=== PATIENT | male | born 2000 | race Caucasian/White ===

== ENCOUNTER 2018-06-14 16:11 | Emergency (ER) | payer BC ==
[2018-06-14 18:14] LABS: Hematocrit 44 % (42-52); Hemoglobin 15.3 g/dl (14.0-18.0); Mean Corpuscular HGB Conc 35 g/dl (31-36); Mean Corpuscular Hemoglobin 31 pg (27-31); Mean Corpuscular Volume 90 fL (80-94); Mean Platelet Volume 7.7 fL (7.4-10.4); Platelet Count 236 10^3/ul (150-450); Red Blood Count 4.91 10^6/ul (4.00-5.40); Red Cell Distribution Width 13 % (10.5-15); White Blood Count 5.2 10^3/ul (3.5-10.8)
[2018-06-14 18:25] LABS: EGFR Non-African American 78.7 (>60)
[2018-06-14 18:30] LABS: Urine Appearance Clear; Urine Blood 1+ (Negative); Urine Color Yellow; Urine Ketones Negative (Negative); Urine Protein Negative (Negative); Urine Red Blood Cell 1+(3-5/hpf) (Absent); Urine Specific Gravity 1.019 (1.010-1.030); Urine Urobilinogen Negative (Negative); Urine White Blood Cell Trace(0-5/hpf) (Absent)
--- NOTE | 2018-06-14 19:28 | ED ---
Neurological HPI - HPI Summary HPI Summary: Patient is a 18 y/o M w/ c/o blurry vision at left eye, then left hand numbness , then left arm numbness, then left facial numbness yesterday. These Sx occurred in short succession of one another and each episode lasted around 15 minutes. Patient reports he was watching TV when Sx onset. He denies headache, difficulty with speech, ambulation. Patient is on propranolol for anxiety, he states that he takes this medication monthly. He denies palpitations and recent stress. [facility] for further workup. No FMHx of CVA. Fever, chills, erythema at eyes, sore throat, chest pain, SOB, cough, abdominal pain, N/V, dysuria, hematuria, myalgia, edema, rash and dizziness are not reported. On triage, pain is rated 0/10, nothing is noted to aggravate/ alleviate Sx. Home medications and allergies are reviewed. - History of Current Complaint Chief Complaint: EDNeurologicalDeficit Stated Complaint: BLURRY VISION/NUMBNESS ON LT SIDE Time Seen by Provider: 06/14/18 16:54 Hx Obtained From: Patient Onset/Duration: Started days ago - onset yesterday, Resolved Timing: Intermittent Episodes Lasting: - around 15 minutes Current Severity: None Neurological Deficit Location: Facial - left sided, LUE Pain Intensity: 0 Pain Scale Used: 0-10 Numeric - 0/10 Character: Numbness/Tingling - LUE, left face, Visual Changes - left eye blurriness, Other: - no headache, changes in speech or ambulation Aggravating: Nothing Alleviating: Nothing Associated Signs and Symptoms: Positive: Visual Changes, Numbness - LUE and left face. Negative: Headache, Dizziness, Impaired Speech, Nausea/Vomiting, Fever, Chest Pain, Shortness of Breath, Palpitations - Allergy/Home Medications Allergies/Adverse Reactions: Allergies Allergy/AdvReac Type Severity Reaction Status Date / Time No Known Allergies Allergy Verified 06/14/18 16:17 PMH/Surg Hx/FS Hx/Imm Hx Sensory History: Denies: Hx Legally Blind, Hx Deafness Opthamlomology History: Denies: Hx Legally Blind EENT History: Denies: Hx Deafness Infectious Disease History: No Infectious Disease History: Denies: Traveled Outside the [place] in Last 30 Days - Family History Known Family History: Negative: Blood Disorder - Social History Alcohol Use: None Substance Use Type: Reports: None Smoking Status (MU): Former Smoker Review of Systems Negative: Fever, Chills Negative: Erythema Negative: Sore Throat Negative: Chest Pain Negative: Shortness Of Breath, Cough Negative: Abdominal Pain, Vomiting, Nausea Negative: dysuria, hematuria Negative: Myalgia, Edema Negative: Rash Neurological: Other - NEGATIVE - DIZZINESS, CHANGES IN AMBULATION; POSITIVE - BLURRY VISION AT LEFT EYE, LUE NUMBNESS AND LEFT FACIAL NUMBNESS Negative: Headache, Slurred Speech All Other Systems Reviewed And Are Negative: Yes Physical Exam - Summary Physical Exam Summary: Constitutional: Well-developed, Well-nourished, Alert. (-) Distressed Skin: Warm, Dry HENT: Normocephalic; Atraumatic Eyes: Conjunctiva normal Neck: Musculoskeletal ROM normal neck. (-) JVD, (-) Stridor, (-) Tracheal deviation Cardio: Rhythm regular, rate normal, Heart sounds normal; Intact distal pulses; The pedal pulses are 2+ and symmetric. Radial pulses are 2+ and symmetric. (-) Murmur Pulmonary/Chest wall: Effort normal. (-) Respiratory distress, (-) Wheezes, (-) Rales Abd: Soft. (-) Tenderness, (-) Distension, (-) Guarding, (-) Rebound Musculoskeletal: (-) Edema Lymph: (-) Cervical adenopathy Neuro: Alert, Oriented x3, Strength normal, Cranial nerves II-XII are grossly intact. (-) Dysmetria, (-) Nystagmus, (-) Ataxia by finger to nose testing, (-) Sensory deficit. GCS 15 Psych: Mood and affect Normal Triage Information Reviewed: Yes Vital Signs On Initial Exam: Initial Vitals Temp Pulse Resp BP Pulse Ox 98.0 F 116 18 149/78 99 06/14/18 16:14 06/14/18 16:14 06/14/18 16:14 06/14/18 16:14 06/14/18 16:14 Vital Signs Reviewed: Yes Diagnostics - Vital Signs Vital Signs Temp Pulse Resp BP Pulse Ox 06/14/18 16:14 98.0 F 116 18 149/78 99 - Laboratory Lab Results: Lab Results 11/16/18 11/16/18 11/16/18 Range/Units 17:50 17:50 18:19 WBC 5.2 (3.5-10.8) 10^3/ul RBC 4.91 (4.00-5.40) 10^6/ul Hgb 15.3 (14.0-18.0) g/dl Hct 44 (42-52) % MCV 90 (80-94) fL MCH 31 (27-31) pg MCHC 35 (31-36) g/dl RDW 13 (10.5-15) % Plt Count 236 (150-450) 10^3/ul MPV 7.7 (7.4-10.4) fL Sodium 140 (135-145) mmol/L Potassium 3.8 (3.5-5.0) mmol/L Chloride 106 (101-111) mmol/L Carbon Dioxide 28 (22-32) mmol/L Anion Gap 6 (2-11) mmol/L BUN 12 (6-24) mg/dL Creatinine 1.18 H (0.67-1.17) mg/dL Est GFR ( Amer) 95.2 (>60) Est GFR (Non-Af Amer) 78.7 (>60) BUN/Creatinine Ratio 10.2 (8-20) Glucose 105 H (70-100) mg/dL Calcium 9.3 (8.6-10.3) mg/dL Total Bilirubin 0.80 (0.2-1.0) mg/dL AST 13 (13-39) U/L ALT 13 (7-52) U/L Alkaline Phosphatase 58 (34-104) U/L Total Protein 7.1 (6.4-8.9) g/dL Albumin 4.6 (3.2-5.2) g/dL Globulin 2.5 (2-4) g/dL Albumin/Globulin Ratio 1.8 (1-3) Urine Color Yellow Urine Appearance Clear Urine pH 6.0 (5-9) Ur Specific [place] 1.019 (1.010-1.030) Urine Protein Negative (Negative) Urine Ketones Negative (Negative) Urine Blood 1+ A (Negative) Urine Nitrate Negative (Negative) Urine Bilirubin Negative (Negative) Urine Urobilinogen Negative (Negative) Ur Leukocyte Esterase Negative (Negative) Urine WBC (Auto) Trace(0-5/hpf) (Absent) Urine RBC (Auto) 1+(3-5/hpf) A (Absent) Urine Bacteria Absent (Absent) Urine Glucose Negative (Negative) Result Diagrams: 06/14/18 17:50 06/14/18 17:50 Lab Statement: Any lab studies that have been ordered have been reviewed, and results considered in the medical decision making process. - CT BRAIN CT CT Interpretation Completed By: Radiologist Summary of CT Findings: BRAIN CT IMPRESSION: No acute intracranial abnormality. THIS REPORT WAS REVIEWED BY ED PHYSICIAN. Re-Evaluation - Re-Evaluation First Eval Re-Evaluation Time: 19:20 Comment: Results of labs and CT discussed with patient, advised neurology and PCP follow up upon discharge. Patient is agreeable with this plan. Course/Dx - Course Course Of Treatment: Patient is a 18 y/o M w/ c/o blurry vision at left eye, then left hand numbness, then left arm numbness, then left facial numbness yesterday. These Sx occurred in short succession of one another and each episode lasted around 15 minutes. Patient reports he was watching TV when Sx onset. He denies headache, difficulty with speech, ambulation. Patient is on propranolol for anxiety, he states that he takes this medication monthly. He denies palpitations and recent stress. [facility] for further workup. No FMHx of CVA. Physical exam was unremarkable, GCS 15. UA showed 1+ blood, trace WBC, 1+ RBC, no bacteria, no glucose. Labs showed glucose 105, creatinine 1.18. BRAIN CT IMPRESSION: No acute intracranial abnormality. Results of labs and CT discussed with patient, advised neurology and PCP follow up upon discharge. Patient is agreeable with this plan. Dx of parethesia. - Diagnoses Provider Diagnoses: Paresthesia Discharge - Sign-Out/Discharge Documenting (check all that apply): Patient Departure - discharge - Discharge Plan Condition: Stable Disposition: HOME Patient Education Materials: Paresthesia (ED) Referrals: Herber Majano MD [Medical Doctor] - 3 Days [facility]Provider Group[facility] - 3 Days Additional Instructions: RETURN TO EMERGENCY DEPARTMENT FOR ANY NEW OR WORSENING SYMPTOMS. FOLLOW UP WITH PRIMARY CARE PHYSICIAN AND NEUROLOGIST IN 2-3 DAYS. - Attestation Statements Document Initiated by Scribe: Yes Documenting Scribe: MANDEEP DODD Provider For Whom Scribe is Documenting (Include Credential): MANOJ LÓPEZ MD Scribe Attestation: I, MANDEEP DODD , scribed for MANOJ LÓPEZ MD on 06/14/18 at 2058.
[2018-06-14 19:48] VITALS: BP 135/66
== END 2018-06-14 19:47 | disposition home or self-care (01) ==
LOC: ED 16:11
DX: R20.2 Paresthesia of skin (principal); H53.8 Other visual disturbances; F41.9 Anxiety disorder, unspecified; Z87.891 Personal history of nicotine dependence
CPT/HCPCS: 36415; 70450; 80053; 81003; 81015; 85027; 87086; 99281